=== PATIENT | female | born 1985 | race Caucasian/White ===

== ENCOUNTER → 2023-08-01 14:14 | Outpatient (CLI) | payer OTHER, MEDICAID, SELFPAY ==
[2023-08-01 19:49] LABS: Free T4, Direct Thyroxine 0.97 ng/dL (0.78-2.19)
[2023-08-01 20:03] LABS: Thyroid Stimulating Hormone 1.23 uIU/mL (0.47-4.68)
[2023-08-01 20:49] LABS: Prolactin 18.8 ng/mL (3.0-18.6)
[2023-08-01 23:59] LABS: Progesterone, Total 2.35 ng/mL
== END ==
PROVIDERS: Visit Provider Nurse Practitioner Adult Health
DX: N91.4 Secondary oligomenorrhea (principal)
CPT/HCPCS: 84144; 84146; 84439; 84443

== ENCOUNTER → 2023-08-06 13:59 | Outpatient (CLI) | payer OTHER, MEDICAID, SELFPAY ==
[2023-08-07 19:12] LABS: Follicle Stimulating Hormone 3.89 mIU/mL
[2023-08-07 19:28] LABS: Estradiol, Total 49.2 pg/mL
[2023-08-14 08:46] LABS: Anti Mullerian Hormone 3.53 ng/mL (.)
== END ==
PROVIDERS: Visit Provider Nurse Practitioner Adult Health
DX: N91.4 Secondary oligomenorrhea (principal)
CPT/HCPCS: 82397; 82670; 83001

== ENCOUNTER → 2024-01-23 13:00 | Outpatient (CLI) | payer OTHER, MEDICAID, SELFPAY ==
[2024-01-23 20:31] LABS: Progesterone, Total 3.02 ng/mL
== END ==
PROVIDERS: PCP Nurse Practitioner Adult Health; Visit Provider Nurse Practitioner Adult Health
DX: N91.4 Secondary oligomenorrhea (principal); N97.9 Female infertility, unspecified
CPT/HCPCS: 84144

== ENCOUNTER → 2024-02-19 10:52 | Outpatient (CLI) | payer OTHER, MEDICAID, SELFPAY ==
[2024-02-19 21:04] LABS: Progesterone, Total 9.79 ng/mL
== END ==
PROVIDERS: Visit Provider Nurse Practitioner Adult Health
DX: N91.4 Secondary oligomenorrhea (principal)
CPT/HCPCS: 84144

== ENCOUNTER → 2024-04-30 13:30 | Outpatient (CLI) | payer OTHER, MEDICAID, SELFPAY ==
[2024-04-30 19:07] LABS: Add Manual Diff / Slide Review NO; Basophils Absolute Auto 0 /uL (0-100); Basophils Percent Auto 0.5 % (0-2); Eosinophils Absolute Auto 200 /uL (0-450); Eosinophils Percent Auto 2.6 % (2-4); Hemoglobin 13.4 g/dL (12.0-16.0); Lymphocytes Absolute Auto 2600 /uL (1100-4500); Lymphocytes Percent Auto 38.1 % (25-40); Mean Corpuscular HGB Conc 33.5 % (30-36); Mean Corpuscular Hemoglobin 27.5 PG (26-34); Monocytes Absolute Auto 400 /uL (0-900); Monocytes Percent Auto 6.3 % (3-14); Neutrophils Absolute Auto 3600 /uL (1500-7000); Neutrophils Percent Auto 52.5 % (50-75); Platelet Count 309 X10^3/uL (150-400); Red Blood Cell Count 4.87 X10^6/uL (4.0-5.2); Red Cell Distribution Width 14.7 % (11.6-14.8); White Blood Cell Count 6.9 X10^3/uL (4.5-11.0)
[2024-04-30 19:43] LABS: Alanine Aminotransferase 30 IU/L (<35); Albumin 3.9 g/dL (3.5-5.0); Albumin Globulin Ratio 1.2 (1.0-2.8); Alkaline Phosphatase 83 U/L (38-126); Aspartate Aminotransferase 28 IU/L (14-36); BUN Creatinine Ratio 20.3 (6-22); Bilirubin Total 0.8 mg/dL (0.2-1.3); Blood Urea Nitrogen 13 mg/dL (7-17); Calcium 9.2 mg/dL (8.4-10.2); Carbon Dioxide 23 mmol/L (22-32); Chloride 104 mmol/L (98-107); Estimated Glomerular Filt Rate > 60 mL/min (>60); Globulin 3.2 g/dL (1.7-4.1); Glucose 112 mg/dL (70-100); HEMOLYSIS < 15 (0-50); Potassium 3.8 mmol/L (3.4-5.1); Sodium 135 mmol/L (137-145); Total Protein 7.1 g/dL (6.3-8.2)
[2024-04-30 20:09] LABS: Erythrocyte Sedimentation Rate 19 MM/HR (0-20)
[2024-04-30 22:07] LABS: TSH w/ Reflex to FT4 1.26 uIU/mL (0.47-4.68)
[2024-04-30 22:27] LABS: Vitamin B12 355 pg/mL (239-931)
== END ==
PROVIDERS: Visit Provider Physician Assistant
DX: M89.8X9 Other specified disorders of bone, unspecified site (principal); R63.5 Abnormal weight gain; R20.0 Anesthesia of skin; R20.2 Paresthesia of skin
CPT/HCPCS: 80053; 82607; 84443; 85025; 85651

== ENCOUNTER 2024-05-03 08:41 | Emergency (ER) | payer OTHER, MEDICAID, SELFPAY ==
[2024-05-03] VITALS (16 sets, daily range): BP systolic 123–159; BP diastolic 71–92; PULSE 73–91; RESP 15–18; TEMP 36.9; O2SAT 95–99; BMI 38.9
[2024-05-03] MEDS: ONDANSETRON 4 MG/2 ML INJ IV (09:30)
[2024-05-03 09:40] LABS: Add Manual Diff / Slide Review NO; Basophils Absolute Auto 0 /uL (0-100); Basophils Percent Auto 0.6 % (0-2); Eosinophils Absolute Auto 200 /uL (0-450); Eosinophils Percent Auto 2.9 % (2-4); Hematocrit 40.2 % (36-46); Hemoglobin 13.6 g/dL (12.0-16.0); Lymphocytes Absolute Auto 2900 /uL (1100-4500); Mean Corpuscular HGB Conc 33.8 % (30-36); Mean Corpuscular Hemoglobin 27.3 PG (26-34); Mean Corpuscular Volume 80.9 fL (80-100); Monocytes Absolute Auto 500 /uL (0-900); Monocytes Percent Auto 6.5 % (3-14); Neutrophils Absolute Auto 3600 /uL (1500-7000); Platelet Count 291 X10^3/uL (150-400); Red Blood Cell Count 4.97 X10^6/uL (4.0-5.2); Red Cell Distribution Width 14.3 % (11.6-14.8); White Blood Cell Count 7.2 X10^3/uL (4.5-11.0)
[2024-05-03 09:52] LABS: Alanine Aminotransferase 40 IU/L (<35); Albumin 4.2 g/dL (3.5-5.0); Albumin Globulin Ratio 1.4 (1.0-2.8); Alkaline Phosphatase 80 U/L (38-126); Aspartate Aminotransferase 29 IU/L (14-36); BUN Creatinine Ratio 13.1 (6-22); Bilirubin Total 0.7 mg/dL (0.2-1.3); Blood Urea Nitrogen 8 mg/dL (7-17); Calcium 8.9 mg/dL (8.4-10.2); Carbon Dioxide 24 mmol/L (22-32); Chloride 106 mmol/L (98-107); Estimated Glomerular Filt Rate > 60 mL/min (>60); Globulin 3.1 g/dL (1.7-4.1); Glucose 104 mg/dL (70-100); HEMOLYSIS < 15 (0-50); Lipase 69 U/L (23-300); Sodium 138 mmol/L (137-145); Total Protein 7.3 g/dL (6.3-8.2)
[2024-05-03] MEDS: ACETAMINOPHEN 325 MG TABLET 650 MG PO (10:14)
[2024-05-03] MEDS: ACETAMINOPHEN 325 MG TABLET PO (10:18)
[2024-05-03 11:17] LABS: Appearance Urine UA CLEAR; Bilirubin Urine UA NEGATIVE (NEGATIVE); Color Urine UA YELLOW; Glucose Urine UA NEGATIVE (Negative); Ketones Urine UA NEGATIVE (NEGATIVE); Leukocyte Esterase Urine UA NEGATIVE (NEGATIVE); Nitrite Urine UA NEGATIVE (Negative); Occult Blood Urine UA NEGATIVE (Negative); Protein Urine UA NEGATIVE (Negative); Specific Gravity Urine UA 1.025 (1.000-1.035)
[2024-05-03 11:19] LABS: pH Urine UA 6.5 (4.5-8.0)
[2024-05-03 11:27] LABS: Amorphous Sediment Urine 1+; Bacteria Urine Moderate (10-30); RBC Urine None Seen (0-5/HPF); Squamous Epithelial Cell Urine 10-30 /HPF (0-5/HPF); Urine Volume 10mL (spun); WBC Urine 0-1/HPF (0-5/HPF)
[2024-05-03 11:28] LABS: Culture Indicated Urine Specimen Cultured
--- NOTE | 2024-05-03 11:34 | ED.ABDPAIN ---
HPI - Abdominal Pain General Chief Complaint: Abdominal Pain Stated Complaint: vomiting/pain right mid quad Time Seen by Provider: 05/03/24 11:33 Source: patient Mode of arrival: Ambulatory History of Present Illness HPI narrative: Patient 38-year-old female currently undergoing fertility treatments presents today with ongoing epigastric and right upper quadrant pain. She reports she was in severe pain last night had some episodes of nausea and vomiting. She just finished a course of letrozole. She has no real lower abdominal pain although now sitting in the ED reports that maybe she was a little bit of left lower quadrant pain. No fever. She reports some bilateral back pain but no painful frequent urination. No fever or other symptoms. Related Data Home Medications Medication Instructions Recorded Confirmed vitamin-ferrous fumarate 1 tab PO DAILY 04/07/24 04/07/24 28 mg iron-folic acid 800 mcg tablet ( Vitamins with Minerals) Previous Rx's Medication Instructions Recorded cefdinir 300 mg capsule 300 mg PO Q12H #14 caps 05/03/24 ondansetron 4 mg disintegrating 4 mg PO Q8H PRN nausea and 05/03/24 tablet vomiting #10 tabs Allergies Allergy/AdvReac Type Severity Reaction Status Date / Time aspirin Allergy Severe Anaphylaxis Verified 08/01/23 13:19 caffeine Allergy Severe Anaphylaxis Verified 08/01/23 13:19 NSAIDS (Non-Steroidal Allergy Severe Anaphylaxis Verified 08/01/23 13:19 Anti-Inflamma Patient History Medical History Secondary female infertility Muscular deconditioning Secondary oligomenorrhea Social History Smoking Status: Never smoker Smoking Status: Never smoker Substance Use Type: does not use Exam Initial Vital Signs Initial Vital Signs: Vital Signs Pulse Rate 83 05/03/24 08:53 Pulse Oximetry 98 05/03/24 08:53 GENERAL: Alert 38-year-old female and in no acute distress. HEENT: Head atraumatic,EOMI, pupils reactive, face symmetric, moist mucous membranes CARDIOVASCULAR: Regular rate and rhythm without murmurs, rubs or gallops. RESPIRATORY: Breath sounds equal bilaterally, no wheezes rales or rhonchi. ABDOMEN: Soft, mild tenderness epigastric region positive Marion's sign no guarding no rebound, very minimal left lower quadrant pain : Mild bilateral CVA tenderness EXTREMITIES: Normal range of motion, no clubbing or edema. Neurovascularly intact NEUROLOGICAL: Alert and oriented x4.Normal gait and speech. Cranial nerves II through XII grossly intact SKIN: Warm, dry, no laceration, no petechiae, no rashes or lesions. Course Orders Ordered: ED Orders 05/03/24 09:25 Complete Blood Count AUTO DIFF Stat Comprehensive Metabolic Panel Stat Lipase Stat 05/03/24 10:56 Urinalysis and Microscopic Stat Urine Culture Stat 05/03/24 11:44 US abdomen limited Stat Discontinued Medications Acetaminophen (Acetaminophen 325 Mg Tablet) 650 mg PO NOW ONE Stop: 05/03/24 10:07 Last Admin: 05/03/24 10:14 Dose: 650 mg Documented By: SUDHA Acetaminophen (Acetaminophen 325 Mg Tablet) 325 mg PO NOW ONE Stop: 05/03/24 10:17 Last Admin: 05/03/24 10:18 Dose: 325 mg Documented By: SUDHA Cefdinir (Cefdinir 300 Mg Capsule) 300 mg PO NOW ONE Stop: 05/03/24 13:31 Last Admin: 05/03/24 13:42 Dose: 300 mg Documented By: SUDHA Ondansetron HCl (Ondansetron 4 Mg/2 Ml Inj) 4 mg IV NOW PRN PRN Reason: Nausea And Vomiting Last Admin: 05/03/24 09:30 Dose: 4 mg Documented By: SUDHA Ondansetron HCl (Ondansetron 4 Mg Odt) 4 mg PO NOW PRN PRN Reason: Nausea And Vomiting Last Admin: 05/03/24 13:42 Dose: 4 mg Documented By: SUDHA Vital Signs Vital signs: Vital Signs - 8 hr 05/03/24 10:30 05/03/24 10:31 05/03/24 10:31 Pulse Rate 73 77 Respiratory Rate Blood Pressure 159/92 H Pulse Oximetry 98 97 05/03/24 11:00 05/03/24 11:00 05/03/24 11:30 Pulse Rate 74 Respiratory Rate Blood Pressure 130/77 130/71 Pulse Oximetry 97 05/03/24 11:30 05/03/24 12:00 05/03/24 12:01 Pulse Rate 74 81 Respiratory Rate 15 Blood Pressure 142/74 H Pulse Oximetry 96 97 05/03/24 12:01 05/03/24 12:30 05/03/24 12:31 Pulse Rate 76 77 80 Respiratory Rate Blood Pressure Pulse Oximetry 96 96 96 05/03/24 12:31 05/03/24 13:00 05/03/24 13:00 Pulse Rate 75 Respiratory Rate Blood Pressure 123/71 129/71 Pulse Oximetry 96 05/03/24 13:30 Pulse Rate 91 H Respiratory Rate Blood Pressure Pulse Oximetry 98 MDM - Abdominal Pain Lab Data 05/03/24 09:25 05/03/24 09:25 Labs: Lab Results 05/03/24 05/03/24 Range/Units 09:25 10:56 WBC 7.2 (4.5-11.0) X10^3/uL RBC 4.97 (4.0-5.2) X10^6/uL Hgb 13.6 (12.0-16.0) g/dL Hct 40.2 (36-46) % MCV 80.9 (80-100) fL MCH 27.3 (26-34) PG MCHC 33.8 (30-36) % RDW 14.3 (11.6-14.8) % Plt Count 291 (150-400) X10^3/uL Neut % (Auto) 50.0 (50-75) % Lymph % (Auto) 40.0 (25-40) % Hale % (Auto) 6.5 (3-14) % Eos % (Auto) 2.9 (2-4) % Baso % (Auto) 0.6 (0-2) % Neut # (Auto) 3600 (0785-0939) /uL Lymph # (Auto) 2900 (9313-2257) /uL Hale # (Auto) 500 (0-900) /uL Eos # (Auto) 200 (0-450) /uL Baso # (Auto) 0 (0-100) /uL Sodium 138 (137-145) mmol/L Potassium 4.0 (3.4-5.1) mmol/L Chloride 106 (98-107) mmol/L Carbon Dioxide 24 (22-32) mmol/L BUN 8 (7-17) mg/dL Creatinine 0.61 (0.52-1.04) mg/dL Estimated GFR > 60 (>60) mL/min BUN/Creatinine Ratio 13.1 (6-22) Glucose 104 H (70-100) mg/dL Calcium 8.9 (8.4-10.2) mg/dL Total Bilirubin 0.7 (0.2-1.3) mg/dL AST 29 (14-36) IU/L ALT 40 H (<35) IU/L Alkaline Phosphatase 80 (38-126) U/L Total Protein 7.3 (6.3-8.2) g/dL Albumin 4.2 (3.5-5.0) g/dL Globulin 3.1 (1.7-4.1) g/dL Albumin/Globulin Ratio 1.4 (1.0-2.8) Lipase 69 (23-300) U/L Urine Color Yellow Urine Appearance Clear Urine pH 6.5 (4.5-8.0) Ur Specific [place] 1.025 (1.000-1.035) Urine Protein Negative (Negative) Urine Glucose (UA) Negative (Negative) g/dL Urine Ketones Negative (NEGATIVE) Urine Occult Blood Negative (Negative) Urine Nitrate Negative (Negative) Urine Bilirubin Negative (NEGATIVE) Urine Urobilinogen 1.0 (0.2) E.U./dL Ur Leukocyte Esterase Negative (NEGATIVE) Urine RBC None seen (0-5/HPF) Urine WBC 0-1/hpf (0-5/HPF) Ur Squamous Epith Cells 10-30 /hpf H (0-5/HPF) Amorphous Sediment 1+ Urine Bacteria Moderate (10-30) H (None) Ur Culture Indicated? Specimen cultured Vol Urine Centrifuged 10ml (spun) Point of care testing: Point of Care Testing Test Results Negative Urine Dip Bedside Urine Glucose Negative Bedside Urine Bilirubin - Negative Bedside Urine Ketone - Negative Urine Specific [place] 1.025 Bedside Urine Occult Blood - Negative Bedside Urine pH 6.0 Bedside Urine Protein - Negative Bedside Urine Urobilinogen - Negative Bedside Urine Nitrite - Negative Bedside Urine Leukocytes - Negative Esterase Imaging Data US - abdomen: Radiologist's Impression: PROCEDURE: US ABDOMEN LIMITED INDICATIONS: ruq TECHNIQUE: Real-time scanning was performed of the abdominal and retroperitoneal organs, with image documentation. COMPARISON: None. FINDINGS: Liver: Homogeneous echotexture. No evidence of focal mass lesion. No intra hepatic biliary ductal dilatation Gallbladder: Cholelithiasis. Gallbladder wall thickening 4.8 mm. Minimal pericholecystic fluid. Marion sign. Common Bile Duct: 4 mm. Pancreas: Unremarkable as visualized IMPRESSION: Cholelithiasis and inflammatory changes consistent with acute cholecystitis. Approved by: Matt Pan M.D. on 05/03/2024 at 11:51 MDM Narrative Medical decision making narrative: MDM CC: Abdominal pain nausea vomiting Complicating co-morbidities: On fertility medication Medical records reviewed: Previous PCP visits Differential considered: Gastroenteritis cholelithiasis, nephrolithiasis UTI Exam documented above, pertinent findings include: Tender epigastric and mild right upper quadrant pain Lab Test results independently reviewed as above. Pertinent findings: No leukocytosis, WBC 7.2, bilirubin 0.7 AST 29 ALT 40 lipase 69 no PETTY negative Imaging studies independently reviewed: Ultrasound shows cholelithiasis with acute cholecystitis there is mild pericholecystic fluid Consultations: 13:20 Dr. Hilario updated on patient's symptoms test results concern for acute cholecystitis acute cholelithiasis. Reports that patient could be admitted today with surgery tomorrow versus discharge home and have outpatient surgery next week. Agrees with the antibiotics either way Treatments: Tylenol, cefdinir Re-evaluations: Patient is feeling little bit better after Tylenol and Zofran. Offered further pain medication but declines. She has significant anaphylaxis to NSAIDs Discussion: Patient 38-year-old female on fertility treatments presenting today with upper epigastric pain nausea and vomiting. She has currently not unfortunately. She is tender in her epigastric and right upper quadrant region. She has a negative bilirubin white count and liver enzymes. Patient is given options provided by surgery. She reports that she would like to go home and schedule surgery for next week. Patient is given 1st dose of cefdinir here in the ED with prescription follow-up. She does not want anything narcotic. Discharge Plan Departure Patient Disposition: Home Clinical Impression: Cholelithiasis and acute cholecystitis without obstruction Instructions: DI for Gallstones Activity Restrictions/Additional Instructions: *You have been diagnosed with gallstones with acute cholecystitis *What to do: At this time I recommend following gallbladder diet stay hydrated as best you can. He will need have your gallbladder removed. Dr. Hilario is the surgeon on today she is aware of you please call her office 1st thing Sunday morning and she will get you scheduled soon as possible *Continue to take medications as directed Tylenol 1000 mg every 6 hours for [id number] pain Zofran 4 mg every 8 hours for nausea or vomiting Cefdinir 300 mg twice a day for 7 days *Follow up with your primary care provider in 2-3 days or call [phone] *Return to ER if you should have increasing pain persistent vomiting fever or any new, worsening or concerning symptoms Prescriptions: New ondansetron 4 mg tablet,disintegrating 4 mg PO Q8H PRN (Reason: nausea and vomiting) Qty: 10 0RF cefdinir 300 mg capsule 300 mg PO Q12H Qty: 14 0RF No Action vit-iron fum-folic ac [ Vitamin with Minerals] 28 mg iron- 800 mcg tablet 1 tab PO DAILY Referrals: Lisa Gill PA-C [Primary Care Provider] - Stand Alone Forms: Patient Portal/API
--- NOTE | 2024-05-03 11:44 | DI.US.S_ITS ---
PROCEDURE: US ABDOMEN LIMITED INDICATIONS: ruq TECHNIQUE: Real-time scanning was performed of the abdominal and retroperitoneal organs, with image documentation. COMPARISON: None. FINDINGS: Liver: Homogeneous echotexture. No evidence of focal mass lesion. No intra hepatic biliary ductal dilatation Gallbladder: Cholelithiasis. Gallbladder wall thickening 4.8 mm. Minimal pericholecystic fluid. Marion sign. Common Bile Duct: 4 mm. Pancreas: Unremarkable as visualized IMPRESSION: Cholelithiasis and inflammatory changes consistent with acute cholecystitis. Approved by: Matt Pan M.D. on 05/03/2024 at 11:51
[2024-05-03] MEDS: CEFDINIR 300 MG CAPSULE PO (13:42)
[2024-05-03] MEDS: ONDANSETRON 4 MG ODT PO (13:42)
== END 2024-05-03 13:51 | disposition home or self-care (01) ==
PROVIDERS: Emergency Provider Emergency Medicine; PCP Physician Assistant
DX: R11.2 Nausea with vomiting, unspecified (principal); K80.00 Calculus of gallbladder with acute cholecystitis without obstruction
CPT/HCPCS: 36415; 76705; 80053; 81001; 81003; 81025; 83690; 85025; 87086; 96374; 99284; J2405

== ENCOUNTER 2024-05-06 12:40 | Day surgery (SDC) | payer OTHER, MEDICAID, SELFPAY ==
[2024-05-05 10:29] VITALS: BMI 37.4
--- NOTE | 2024-05-06 | PATH_ITS ---
[facility] Accession Number: [id number] No. of containers..01 Tissue . 01 Material submitted: . gallbladder - GALLBLADDER . 01 Diagnosis: GALLBLADDER, CHOLECYSTECTOMY: Mild chronic cholecystitis. Cholelithiasis. Two benign lymph nodes. MRV 05/08/2024 1255 Local . 01 Electronically signed: . Monika Weller MD, Pathologist NPI- [id number] . 01 Gross description: . Received in formalin with two patient identifiers and gallbladder, is an intact gallbladder, 8.6 x 4.7 x 4.2 cm, with an unremarkable external surface. The cystic duct margin is inked blue and two villasenor lymph node candidates are identified, 0.7 and 1.0 cm in greatest dimension. The lumen contains numerous yellow faceted calculi, up to 0.6 cm in greatest dimension, grossly obstructing the cystic duct and admixed with dark green viscous bile. The mucosa is green and velvety with yellow areas of discoloration and no polyps or lesions identified. The pierson average 0.2 cm thick. Pattern Gater sections to include the cystic duct margin, two intact lymph node candidates, and full thickness sections are submitted in A1. ([id number]) /MRV 05/07/2024 1515 Local . 01 Pathologist provided ICD-10: K80.20, K80.10, K81.1 . 01 CPT . 724573 Specimen Comment: A courtesy copy of this report has been sent to [phone] Performed at: [address] [facility] [address], [place], [place] [id number] MD Carlitos Billings MD Phone: [phone]
[2024-05-06] MEDS: ACETAMINOPHEN 325 MG TABLET 975 MG PO (13:04)
[2024-05-06] MEDS: SCOPOLAMINE 1 PATCH TOP (13:04)
[2024-05-06] MEDS: LACTATED RINGERS 1,000 ML 42 ML IV ×2 (13:05→15:47)
[2024-05-06] MEDS: FAMOTIDINE 20 MG/2 ML VIAL IV (13:05)
[2024-05-06 13:12] VITALS: BP 113/87; PULSE 86; RESP 16; TEMP 36.2; O2SAT 98
[2024-05-06 13:16] VITALS: BMI 37.0
--- NOTE | 2024-05-06 13:29 | P.HP_ITS ---
History of Present Illness History of Present Illness Date Patient Seen: 05/06/24 Time Patient Seen: 13:29 Chief complaint: [facility] [place] Narrative: acute cholecystitis, seen in ED over the weekend. Was able to go home, pain mostly gone. RUQ pain with nausea. She may have had other episodes, but none of this sharp 10/10 intensity. [place] [address] [facility] Medical History Secondary female infertility Muscular deconditioning Secondary oligomenorrhea Surgical History History of D&C Social History household members: spouse Smoking Status: Never smoker Meds Home Medications and Allergies Home Medications Medication Instructions Recorded Confirmed Type vitamin-ferrous fumarate 1 tab PO DAILY 04/07/24 05/06/24 History 28 mg iron-folic acid 800 mcg tablet ( Vitamins with Minerals) cefdinir 300 mg capsule 300 mg PO Q12H #14 caps 05/03/24 05/06/24 Rx ondansetron 4 mg disintegrating 4 mg PO Q8H PRN nausea and 05/03/24 Rx tablet vomiting #10 tabs Allergies Allergy/AdvReac Type Severity Reaction Status Date / Time aspirin Allergy Severe Anaphylaxis Verified 05/06/24 13:10 caffeine Allergy Severe Anaphylaxis Verified 05/06/24 13:10 NSAIDS (Non-Steroidal Allergy Severe Anaphylaxis Verified 05/06/24 13:10 Anti-Inflamma Review of Systems Review of Systems ROS: Yes All systems reviewed with the patient and are negative except as otherwise documented Exam Vital Signs (past 8 hours): - 05/06/24 13:12 Temperature 97.1 F L Pulse Rate 86 Respiratory Rate 16 Blood Pressure 113/87 Pulse Oximetry 98 Oxygen Delivery Method Room Air Oxygen Delivery Method Room Air Const General: cooperative, healthy appearing and comfortable Nutritional Appearance: overweight HENMT Head: normal to inspection, normocephalic and atraumatic Eyes Sclera: sclerae normal Neck Neck: trachea midline Resp Effort & Inspection: normal respiratory effort and able to speak in complete sentences Cardio Rate: regular rate Rhythm: regular rhythm GI Palpation: soft and No tender Skin General: turgor normal and No atrophy Neuro General: patient alert, patient awake and patient oriented x3 Cranial Nerves: tongue midline Psych Mental Status: mental status grossly normal Judgment: judgment good Assessment & Plan Assessment & Plan narrative: Acute cholecystitis Plan: maco jocy Time-Based Coding :: [TOTAL MINUTES] spent with patient and on the chart (including review of chart, obtaining history, exam, reviewing outside data, placing orders, documenting exam and treatment plan, and counseling patient) on [DATE].
[2024-05-06] MEDS: CEFAZOLIN 2 GM/100 ML PREMIX 100 ML IV (15:05)
--- NOTE | 2024-05-06 15:12 | SUR.OPER ---
Supine on padded OR bed, head on pillow, arms secured on padded arm boards at <90 degrees abduction, legs uncrossed, safety belt at thigh, tape over blanket over lower legs.
[2024-05-06] MEDS: BUPIVACAINE 0.5% W/ EPI (PF) 30 ML VIAL INJ (15:18)
--- NOTE | 2024-05-06 15:47 | PM.OP.1 ---
Operative Date/Time/Diagnoses Date of procedure: 05/06/24 Time of procedure: 15:47 Pre-op diagnosis: Acute cholecystitis Post-op diagnosis: same Procedure & Clinicians Procedure: Laparoscopic cholecystectomy Same procedure as scheduled: Yes Indications: Acute cholecystitis Surgeon: Pat Hilario Click Yes if Unassisted: No Anesthesia Type: General and Local Operative Notes Findings: Evidence of recent acute cholecystitis. Otherwise normal-appearing gallbladder. Closure Type: primary Specimen(s): other (Gallbladder) Estimated Blood Loss (mL): 50 Blood products transfused: none Procedure in detail: Preop diagnosis: Acute cholecystitis Postop diagnosis: Same Operative procedure: Laparoscopic cholecystectomy Surgeon: Kalee Hilario MD dental laboratory assistant GREGORY Lynne Findings: Evidence of recent acute cholecystitis otherwise normal-appearing gallbladder Procedure: Patient placed in supine position. Prepped and draped in sterile fashion to expose her abdomen. Infraumbilical port site was placed using open technique a 12 mm port. Insufflation began all of the ports were placed under direct vision including a 10 mm port in the midepigastrium and 2 5 mm ports in the right lateral abdomen. Gallbladder was grasped pushed cephalad for exposure. Cystic duct was identified clipped once distally, twice proximally and transected. There were 2 branches of cystic artery feeding the gallbladder 1 just beneath the cystic duct which was clipped twice proximally cauterized. And 1 medial which was clipped once distally once proximally and transected. Gallbladder was removed from the fossa bed with electrocautery. We had no spillage of stones or bile. Surgicel was placed into the operative site and close examination was performed prior to removal of ports to be sure we had no further bleeding. Gallbladder was placed into an Endo-Catch bag and pulled through the infraumbilical port site intact. I then removed all ports and began closure. Closure consisted of interrupted 0 Vicryl for fascial closure, running 4-0 Monocryl for skin. Steri-Strips were placed. Sterile dressings were placed. Patient was awakened, extubated, taken to recovery room in stable condition. Needle, instrument, sponge counts were correct. Blood loss: 50 mL Specimen: Gallbladder Complications: none Post-operative Condition: stable Disposition: PACU
[2024-05-06 15:57] VITALS: BP 153/96; PULSE 101; RESP 17; TEMP 36.1; O2SAT 99
[2024-05-06 16:03] VITALS: BP 153/98; PULSE 96; RESP 19; TEMP 36.2; O2SAT 96
[2024-05-06 16:08] VITALS: BP 157/85; PULSE 87; RESP 17; TEMP 36.2; O2SAT 98
[2024-05-06 16:16] VITALS: BP 135/94; PULSE 78; RESP 17; TEMP 36.2; O2SAT 95
[2024-05-06] MEDS: ONDANSETRON 4 MG/2 ML INJ IV (16:24)
[2024-05-06] MEDS: OXYCODONE IR 5 MG TABLET PO (16:24)
[2024-05-06 16:25] VITALS: BP 158/96; PULSE 84; RESP 13; TEMP 36.2; O2SAT 96
== END 2024-05-06 17:09 | disposition home or self-care (01) ==
PROVIDERS: PCP Physician Assistant; Referring Provider Surgery; Visit Provider Surgery
PROC: 0FT44ZZ Resection of Gallbladder, Percutaneous Endoscopic Approach (ICD-10-PCS; CPT 47562; principal; 2024-05-06 13:45)
DX: K80.10 Calculus of gallbladder with chronic cholecystitis without obstruction (principal)
CPT/HCPCS: 47562; 81025; J0330; J0690; J1100; J2250; J2405; J2704; J3010

== ENCOUNTER → 2024-08-05 10:33 | Outpatient (CLI) | payer OTHER, SELFPAY ==
[2024-08-05 12:01] LABS: HCG Quantitative /Beta subunit 4915.5 mIU/mL
== END ==
PROVIDERS: PCP Physician Assistant; Referring Provider Student in an Organized Health Care Education/Training Program; Visit Provider Student in an Organized Health Care Education/Training Program
DX: N91.2 Amenorrhea, unspecified (principal); Z87.59 Personal history of other complications of pregnancy, childbirth and the puerperium
CPT/HCPCS: 36415; 84702

== ENCOUNTER → 2024-08-07 11:03 | Outpatient (CLI) | payer OTHER, SELFPAY ==
[2024-08-07 20:53] LABS: HCG Quantitative /Beta subunit 9129.4 mIU/mL
== END ==
PROVIDERS: PCP Physician Assistant; Visit Provider Student in an Organized Health Care Education/Training Program
DX: N91.2 Amenorrhea, unspecified (principal); Z87.59 Personal history of other complications of pregnancy, childbirth and the puerperium
CPT/HCPCS: 84702

== ENCOUNTER → 2024-08-19 14:12 | Outpatient (CLI) | payer OTHER, SELFPAY ==
[2024-08-19 16:21] LABS: Urine N gonorrhoeae NOT DETECTED
[2024-08-19 16:24] LABS: Urine Chlamydia NOT DETECTED
== END ==
PROVIDERS: PCP Physician Assistant; Visit Provider Student in an Organized Health Care Education/Training Program
DX: Z11.3 Encounter for screening for infections with a predominantly sexual mode of transmission (principal)
CPT/HCPCS: 87491; 87591

== ENCOUNTER → 2024-09-16 11:54 | Outpatient (CLI) | payer OTHER, SELFPAY ==
[2024-09-16 13:30] LABS: Add Manual Diff / Slide Review NO; Basophils Absolute Auto 0 /uL (0-100); Basophils Percent Auto 0.4 % (0-2); Eosinophils Absolute Auto 100 /uL (0-450); Eosinophils Percent Auto 1.2 % (2-4); Hematocrit 39.1 % (36-46); Hemoglobin 13.5 g/dL (12.0-16.0); Lymphocytes Absolute Auto 2100 /uL (1100-4500); Lymphocytes Percent Auto 20.6 % (25-40); Mean Corpuscular HGB Conc 34.5 % (30-36); Mean Corpuscular Hemoglobin 28.4 PG (26-34); Mean Corpuscular Volume 82.3 fL (80-100); Monocytes Absolute Auto 300 /uL (0-900); Monocytes Percent Auto 3.3 % (3-14); Neutrophils Absolute Auto 7600 /uL (1500-7000); Neutrophils Percent Auto 74.5 % (50-75); Platelet Count 257 X10^3/uL (150-400); Red Blood Cell Count 4.75 X10^6/uL (4.0-5.2); Red Cell Distribution Width 15.4 % (11.6-14.8); White Blood Cell Count 10.2 X10^3/uL (4.5-11.0)
[2024-09-16 13:46] LABS: Natera Collection Specimen Collected
[2024-09-16 13:52] LABS: Hemoglobin A1C% w Est Avg Glu 5.4 % (4.0-6.0)
[2024-09-16 13:59] LABS: Alanine Aminotransferase 34 IU/L (<35); Aspartate Aminotransferase 29 IU/L (14-36); Uric Acid 3.4 mg/dL (2.5-6.2)
[2024-09-16 14:43] LABS: Hepatitis B Surface Antigen NEGATIVE s/c (NEGATIVE); Rubella Antibody IgG 13.9 IU/mL (>15)
[2024-09-16 14:51] LABS: HIV 1 & 2 Ab/Ag 4th Gen Combo NEGATIVE (NEGATIVE); Hep C Virus Ab w/Reflex Quant NEGATIVE s/c (NEGATIVE)
[2024-09-17 04:40] LABS: RPR Screen Non Reactive (Non Reactive)
[2024-09-17 10:09] LABS: Varicella IgG Antibody Reactive (Non Reactive)
== END ==
PROVIDERS: PCP Physician Assistant; Referring Provider Student in an Organized Health Care Education/Training Program; Visit Provider Student in an Organized Health Care Education/Training Program
DX: O09.899 Supervision of other high risk pregnancies, unspecified trimester (principal); O09.299 Supervision of pregnancy with other poor reproductive or obstetric history, unspecified trimester
CPT/HCPCS: 36415; 80055; 83036; 84450; 84460; 84550; 86787; 86803; 86850; 86900; 86901; 87389

== ENCOUNTER → 2024-11-11 11:51 | Outpatient (CLI) | payer OTHER, SELFPAY ==
--- NOTE | 2024-11-11 11:52 | DI.US.S_ITS ---
PROCEDURE: US OB >= 14 WEEKS FETUS INDICATIONS: 20 week anatomy scan OUTSIDE/PRIOR DATING DATA: Last menstrual period (LMP): 07/01/2024. LMP-based estimated date of delivery (CELIA): 04/01/2025. First dating scan (date and location): 08/19/2024. Estimated date of delivery (CELIA) from first dating scan: 04/07/2025. The calculations are made using the ultrasound CELIA of 04/07/2025. TECHNIQUE: Real-time scanning was performed of the fetus, with image documentation and biometric measurements. Endovaginal scanning: Not performed COMPARISON: None. FINDINGS: General: A single living intrauterine gestation is present. Presentation: Breech. Placenta: Placental position is anterior , without previa. Note is made of marginal insertion of the cord on the placenta approximately 1.0 cm from the placental edge. Amniotic fluid index: 16.4 cm, normal range is 5-24 cm. Single deepest vertical pocket is 5.5 cm. heart rate: 169 beats per minute. Maternal cervical canal: 4.5 cm long. Normal lower limit is 2.5 cm. biometrics: Biparietal diameter: 4.5 cm, 19 weeks 4 days Head circumference: 17.2 cm, 19 weeks 5 days Abdominal circumference: 15.9 cm, 21 weeks 0 days Femur length: 3.0 cm, 19 weeks 1 day Clinically estimated gestational age: 19 weeks 0 days Composite gestational age from present scan: 19 weeks 6 days Estimated weight and percentile: 332 g, 96 percentile Anatomic survey: Neuro: Ventricles are non-dilated at less than 10 mm. Cisterna magna is normal at 3-11 mm. Cerebellum is normal in size and morphology. Nuchal skin fold: Normal at less than 6 mm between 14-21 weeks gestational age. Face: Nose and lips, facial profile are normal. Spine: No evidence for spina bifida. Heart: 4-chambered heart is present, with normal ventricular outflow tracts. Diaphragm: Diaphragm is intact. Stomach: Left-sided stomach is present. Kidneys: No hydronephrosis. Normal is less than 5 mm in 2nd trimester, less than 7 mm in 3rd trimester. Cord: 3-vessel cord has marginal insertion on the placenta, approximately 1 cm from the placental edge. Bladder: Normal in size. Extremities: All 4 extremities identified. IMPRESSION: 1. Living 2nd trimester intrauterine with no sonographic evidence of complications. Current ultrasound age is 6 days greater than clinical age based on initial ultrasound. EFW is 96 percentile. 2. Marginal insertion of the cord on the placenta, approximately 1 cm from the placental edge. 3. Otherwise unremarkable 2nd trimester anatomy study. We strive to produce accurate, complete, and clear reports of imaging services. To assist us in improving patient care, this report was composed using standard report templates and voice recognition software. Therefore, it may contain abnormal punctuation, insertions and/or omissions. Occasional wrong-word or sound-alike substitutions may occur. Though we review the report and make efforts to correct it, we do recommend that the report be read carefully in proper context to recognize any text inaccuracies. Dictated by: Wilmer Driver M.D. on 11/11/2024 at 15:42 Approved by: Wilmer Driver M.D. on 11/11/2024 at 15:47
== END ==
PROVIDERS: PCP Physician Assistant; Referring Provider Student in an Organized Health Care Education/Training Program; Visit Provider Student in an Organized Health Care Education/Training Program
DX: O43.192 Other malformation of placenta, second trimester (principal); Z3A.19 19 weeks gestation of pregnancy
CPT/HCPCS: 76811

== ENCOUNTER 2024-11-24 18:26 | Outpatient (CLI) | payer OTHER, SELFPAY ==
--- NOTE | 2024-11-24 19:26 | DI.US.S_ITS ---
PROCEDURE: US RENAL COMPLETE INDICATIONS: L sided pain TECHNIQUE: Real-time scanning was performed of the kidneys and bladder, with image documentation. COMPARISON: None. FINDINGS: Kidneys: Kidneys are normal in size. Right kidney measures 10.9 cm long; left kidney measures 13.3 cm long. Right renal cortical thickness is 1.5 cm; left renal cortical thickness is 1.5 cm. Renal cortical echotexture is normal. No hydronephrosis or nephrolithiasis. No suspicious solid mass lesions. Bladder: Urinary bladder is decompressed. No gross abnormality is seen. Miscellaneous: No free pelvic fluid. IMPRESSION: 1. Unremarkable ultrasound examination of bilateral kidneys. 2. No gross abnormality is seen in decompressed urinary bladder. Dictated by: Gualberto Lewis M.D. on 11/24/2024 at 20:31 Approved by: Gualberto Lewis M.D. on 11/24/2024 at 20:33
[2024-11-24 19:39] LABS: Appearance Urine UA CLEAR; Bilirubin Urine UA NEGATIVE (NEGATIVE); Color Urine UA YELLOW; Glucose Urine UA NEGATIVE (Negative); Ketones Urine UA NEGATIVE (NEGATIVE); Leukocyte Esterase Urine UA NEGATIVE (NEGATIVE); Nitrite Urine UA NEGATIVE (Negative); Occult Blood Urine UA NEGATIVE (Negative); Protein Urine UA NEGATIVE (Negative); Specific Gravity Urine UA 1.025 (1.000-1.035)
[2024-11-24 19:45] LABS: Bacteria Urine Few (2-10); Calcium Oxalate Crystals Urine Few; Culture Indicated Urine Cult Not Indicated; RBC Urine None Seen (0-5/HPF); Squamous Epithelial Cell Urine 1-5 /HPF (0-5/HPF); Urine Volume 10mL (spun); WBC Urine 0-1/HPF (0-5/HPF)
--- NOTE | 2024-11-25 19:06 | PM.OBTRLD ---
Visit Information Visit Information Date of evaluation: 11/24/24 Primary OB Provider: Ariella Kinney On-call OB Provider: Shi Darby Comments/Additional reasons for admission: Right sided flank pain Pt is a 39 year old who presented to the with c/o right sided flank pain. 24+6 wks gest. FAS last week was normal. No h/o kidney stones. No blood in urine. No contractions. + FM. No VB. No n/v. Pain better since arriving on Center. [facility] Medical History (Updated 11/24/24 @ 16:21 by Kanika Lombardo MD) anxiety Bilateral hip pain Heel pain, bilateral Bone pain Secondary oligomenorrhea Preeclampsia Abnormal Pap smear of cervix (~2010) Secondary female infertility Surgical History (Updated 08/12/24 @ 08:14 by Florencia Cedeno RN) History of cholecystectomy (04/14/24) [place] teeth removed (02/10/05) History of section (07/14/22) History of D&C (~2020) Family History (Updated 08/12/24 @ 08:22 by Florencia Cedeno RN) Mother Drug abuse Hepatitis C Father Sarcomatoid renal cell carcinoma Grandfather Cancer of kidney Congestive heart failure Prostate cancer Smoker COPD (chronic obstructive pulmonary disease) AICD (automatic cardioverter/defibrillator) present Uncle Lung cancer History of chemical exposure Grandmother COPD (chronic obstructive pulmonary disease) Smoker Dementia Cancer Grandmother Hypothyroidism Hypertension Hyperlipidemia Diabetes mellitus History of cholecystectomy Aunt Hypoglycemia Uncle Polycythemia Social History marital status: number of children: 1 household members: spouse and children lives independently: Yes caregiver/support person: No [facility] pets and animals: Yes (dogs) education level: college (Bachelor's degree) occupational status: employed (ag service manager) current occupational exposures/hazards: No leyla/tenriism: Judaism special leyla needs: Yes (would request home and family living professor for last rights in that necessity) travel history: recent (domestic only) seatbelt use: always water heater temp set < 120 deg: Yes working smoke detector in home: Yes fire extinguisher in home: Yes carbon monox detector in home: Yes firearms in home: No do you feel safe at home: Yes second hand exposure: Yes ( vapes outdoors) alcohol intake: former (~1 glass wine/week when not or attempting to conceive) substance use type: does not use during the past year weight has: remained stable well-balanced diet: daily or most days daily servings fruits/ve or more times/day caffeine: No Type(s) of exercise: walking Exam Narrative Exam Narrative: U/A: negative FHT's: 140's. U/S: FINDINGS: Kidneys: Kidneys are normal in size. Right kidney measures 10.9 cm long; left kidney measures 13.3 cm long. Right renal cortical thickness is 1.5 cm; left renal cortical thickness is 1.5 cm. Renal cortical echotexture is normal. No hydronephrosis or nephrolithiasis. No suspicious solid mass lesions. Bladder: Urinary bladder is decompressed. No gross abnormality is seen. Miscellaneous: No free pelvic fluid. IMPRESSION: 1. Unremarkable ultrasound examination of bilateral kidneys. 2. No gross abnormality is seen in decompressed urinary bladder. Objective Labs Labs: Laboratory Results - last 24 hr 11/24/24 18:30 Urine Color Yellow Urine Appearance Clear Urine pH 6.0 Ur Specific [place] 1.025 Urine Protein Negative Urine Glucose (UA) Negative Urine Ketones Negative Urine Occult Blood Negative Urine Nitrate Negative Urine Bilirubin Negative Urine Urobilinogen 1.0 Ur Leukocyte Esterase Negative Urine RBC None seen Urine WBC 0-1/hpf Ur Squamous Epith Cells 1-5 /hpf D Calcium Oxalate Crystal Few H Urine Bacteria Few (2-10) H Ur Culture Indicated? Cult not indicated Vol Urine Centrifuged 10ml (spun) Evaluation Evaluation Baseline heart rate: 145 Diagnosis, Plan/Disposition Plan/Disposition Plan: Assessment: 39 year old at 20+6 wks gest with right flank pain Negative U/A and ultrasound Plan: Discharge to home F/U as scheduled with Dr. Kinney S/S of kidney stones and pyelonephritis reviewed OB Disposition: home
== END 2024-11-24 20:05 | disposition home or self-care (01) ==
LOC: OB 11-25 14:14
PROVIDERS: PCP Physician Assistant; Referring Provider Obstetrics & Gynecology; Visit Provider Obstetrics & Gynecology
DX: Z36.9 Encounter for antenatal screening, unspecified (principal)
CPT/HCPCS: 59050; 76770; 81001; 87086; G0378; G0379

== ENCOUNTER → 2025-01-13 12:09 | Outpatient (CLI) | payer BC, SELFPAY ==
[2025-01-13 15:37] LABS: Hematocrit 37.6 % (36-46); Hemoglobin 12.5 g/dL (12.0-16.0)
[2025-01-13 15:59] LABS: GTT (PREG) 1 Hour PP 50gm Dose 116 mg/dL (76-139)
== END ==
PROVIDERS: PCP Physician Assistant; Referring Provider Student in an Organized Health Care Education/Training Program; Visit Provider Student in an Organized Health Care Education/Training Program
DX: Z13.0 Encounter for screening for diseases of the blood and blood-forming organs and certain disorders involving the immune mechanism (principal); Z13.1 Encounter for screening for diabetes mellitus
CPT/HCPCS: 82950; 85014; 85018

== ENCOUNTER → 2025-02-10 12:24 | Outpatient (CLI) | payer BC, SELFPAY ==
--- NOTE | 2025-02-10 12:25 | DI.US.S_ITS ---
PROCEDURE: US OB LIMITED INDICATIONS: re-evaluate growth OUTSIDE/PRIOR DATING DATA: Last menstrual period (LMP): Not available. LMP-based estimated date of delivery (CELIA): 04/01/25. First dating scan (date and location): 08/19/24. Estimated date of delivery (CELIA) from first dating scan: 04/07/25. The calculations are made using the working CELIA of 04/07/25. TECHNIQUE: Real-time scanning was performed of the fetus, with image documentation and biometric measurements. Endovaginal scanning: No COMPARISON: 11/11/24. FINDINGS: General: A single living intrauterine gestation is present. Presentation: Vertex. Placenta: Placental position is anterior , without previa Amniotic fluid index: 19.8 cm, normal range is 5-24 cm. Single deepest vertical pocket is 6.9 cm. heart rate: 145 beats per minute. Maternal cervical canal: Closed and 3.8 cm long. Normal lower limit is 2.5 cm. biometrics: Biparietal diameter: 8.3 cm, 33 weeks three days Head circumference: 31.3 cm, 35 weeks 0 days Abdominal circumference: 31.3 cm, 35 weeks two days Femur length: 6.3 cm, 32 weeks five days Clinically estimated gestational age: 32 weeks 0 days Composite gestational age from present scan: 34 weeks one day Estimated weight and percentile: 2413 g, 97th percentile Other: Not applicable. IMPRESSION: Single live intrauterine with estimated weight at the 97th percentile, consistent with prior exam where estimated weight was seen at the 96th percentile. Closed cervix and normal amniotic fluid volume. We strive to produce accurate, complete, and clear reports of imaging services. To assist us in improving patient care, this report was composed using standard report templates and voice recognition software. Therefore, it may contain abnormal punctuation, insertions and/or omissions. Occasional wrong-word or sound-alike substitutions may occur. Though we review the report and make efforts to correct it, we do recommend that the report be read carefully in proper context to recognize any text inaccuracies. Dictated by: Lucy Leo M.D. on 02/11/2025 at 13:23 Approved by: Lucy Leo M.D. on 02/11/2025 at 13:25
== END ==
PROVIDERS: PCP Physician Assistant; Referring Provider Student in an Organized Health Care Education/Training Program; Visit Provider Student in an Organized Health Care Education/Training Program
DX: O99.213 Obesity complicating pregnancy, third trimester (principal); O43.193 Other malformation of placenta, third trimester; E66.09 Other obesity due to excess calories; Z3A.34 34 weeks gestation of pregnancy
CPT/HCPCS: 76815

== ENCOUNTER → 2025-05-27 10:36 | Outpatient (CLI) | payer BC, SELFPAY ==
--- NOTE | 2025-05-27 10:36 | DI.MG.S_ITS ---
US breast RT limited, MM diagnostic mammo BI: 05/27/2025 BI-RADS: 2
== END ==
LOC: US 10:36
PROVIDERS: PCP Physician Assistant; Referring Provider Physician Assistant; Visit Provider Physician Assistant
DX: O92.20 Unspecified disorder of breast associated with pregnancy and the puerperium (principal); N63.15 Unspecified lump in the right breast, overlapping quadrants; Z39.1 Encounter for care and examination of lactating mother; R92.333 Mammographic heterogeneous density, bilateral breasts
CPT/HCPCS: 76642; 77066; G0279